=== PATIENT | female | born 1980 | race Hispanic/Latino ===

== ENCOUNTER 2017-11-09 07:14 | Emergency (ER) | payer BC ==
[~2017-11-09] VITALS: Ht 157.5 cm; Wt 78.5 kg
[2017-11-09] MEDS ORDERED: HYDROMORPHONE 2MG/ML INJ IM ONE (08:30)
[2017-11-09] MEDS ORDERED: ONDANSETRON HCL 4 MG ORAL DISINTEGRATING TAB PO ONE (08:30)
[2017-11-09 09:05] VITALS: BP 118/88
== END 2017-11-09 09:33 | disposition home or self-care (01) ==
LOC: ER 07:14
DX: M54.32 Sciatica, left side (principal)
CPT/HCPCS: 99283; J1170

== ENCOUNTER 2018-05-23 13:11 | Emergency (ER) | payer BC ==
[~2018-05-23] VITALS: Ht 157.5 cm; Wt 78.5 kg
[2018-05-23 15:07] VITALS: BP 122/76
== END 2018-05-23 15:09 | disposition home or self-care (01) ==
LOC: ER 13:11
DX: M54.42 Lumbago with sciatica, left side (principal); E03.9 Hypothyroidism, unspecified
CPT/HCPCS: 99282

== ENCOUNTER 2018-10-24 13:39 | Emergency (ER) | payer BC, OTHER ==
[~2018-10-24] VITALS: Ht 157.5 cm; Wt 78.5 kg
[2018-10-24] MEDS ORDERED: METHOCARBAMOL 500 MG TAB PO ONE (13:45)
[2018-10-24] MEDS ORDERED: KETOROLAC TROMETHAMINE 60 MG/2 ML VIAL IM ONE (13:45)
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
[2018-10-24 16:39] VITALS: BP 118/81
== END 2018-10-24 16:44 | disposition home or self-care (01) ==
LOC: ER 13:39
DX: M54.6 Pain in thoracic spine (principal); S23.3XXA Sprain of ligaments of thoracic spine, initial encounter; V43.52XA Car driver injured in collision with other type car in traffic accident, initial encounter; Y92.488 Other paved roadways as the place of occurrence of the external cause
CPT/HCPCS: 72072; 81025; 99283; J1885